=== PATIENT | male | born 1980 | race Caucasian/White ===

== ENCOUNTER 2017-03-15 19:31 | Inpatient (IN) | payer MEDICAID ==
[~2017-03-15] VITALS: Ht 190.5 cm; Wt 107.7 kg
[~2017-03-15 19:31] MED LIST: BENADRYL PO; FERROUS SULFATE PO; GEODON PO; HALO10TA15 PO; LEVE1000 PO; LORA2TAB2 PO; OLAN20TA2 PO; VIT C PO
[2017-03-15 20:04] VITALS: BP 104/64
[2017-03-15] MEDS ORDERED: OLAN10TA3 PO (20:19)
[2017-03-15] MEDS ORDERED: INFLUENZA VIRUS VACCINE QVS 2017-18 (3YR+)/PF 60 MCG/0.5 ML SYRINGE IM ONE (20:30)
[2017-03-15] MEDS ORDERED: PNEUMOCOCCAL VACCINE POLYVALENT 0.5 ML VIAL [PPSV23] IM ONE (20:30)
[2017-03-15 20:45] VITALS: BP 120/81
[2017-03-16] MEDS: HALOPERIDOL 5 MG TABLET PO PRN (02:53)
[2017-03-16] MEDS: LORazepam 2 MG TABLET PO PRN (02:53)
[2017-03-16] MEDS: ZOLPIDEM TARTRATE 10 MG TABLET PO PRN (02:53)
[2017-03-16] MEDS ORDERED: LORazepam 2 MG/ML VIAL IM ONE (03:15)
[2017-03-16] MEDS ORDERED: HALOPERIDOL LACTATE 5 MG/ML VIAL IM ONE (03:15)
[2017-03-16] MEDS ORDERED: DiphenhydrAMINE HCL 50 MG/ML VIAL IM ONE (03:15)
[2017-03-16 04:22] VITALS: BP 135/78
[2017-03-16] MEDS ORDERED: PETROLATUM,WHITE 71 GM JELLY TP PRN (08:00)
[2017-03-16] MEDS ORDERED: CloNIDine HCL 0.1 MG TABLET PO PRN (08:00)
[2017-03-16] MEDS ORDERED: BACITRACIN 28.4 GM OINTMENT TP PRN (08:00)
[2017-03-16] MEDS ORDERED: MAGNESIUM HYDROXIDE SUSPENSION 30 ML UDCUP PO PRN (08:00)
[2017-03-16] MEDS ORDERED: ALBUTEROL SULFATE HFA 90 MCG/PUFF 8 GM INHALER IH PRN (08:00)
[2017-03-16] MEDS ORDERED: ACETAMINOPHEN 325 MG TABLET PO PRN (08:00)
[2017-03-16] MEDS ORDERED: MAG HYDROX/AL HYDROX/SIMETH ES 30 ML SUSPENSION UDCUP PO PRN (08:00)
[2017-03-16] MEDS ORDERED: BENZOCAINE/MENTHOL LOZENGE MM PRN (08:00)
[2017-03-16] MEDS ORDERED: IBUPROFEN 600 MG TABLET PO PRN (08:00)
[2017-03-16] MEDS ORDERED: ONDANSETRON HCL 4 MG TABLET PO PRN (08:00)
[2017-03-16] MEDS ORDERED: LOPERAMIDE HCL 2 MG CAPSULE PO PRN (08:00)
[2017-03-16 08:42] VITALS: BP 123/71
[2017-03-16] MEDS: NICOTINE 21 MG/24 HOUR PATCH TD SCH (09:32)
[2017-03-16 16:14] VITALS: BP 129/75
[2017-03-16] MEDS: HALOPERIDOL 10 MG TABLET PO SCH (16:57)
[2017-03-16] MEDS: BENZTROPINE MESYLATE 2 MG TABLET PO SCH (16:57)
[2017-03-16] MEDS: OXcarbazepine 300 MG TABLET PO SCH (16:58)
[2017-03-17 05:54] VITALS: BP 124/77
[2017-03-17] MEDS: HALOPERIDOL 10 MG TABLET PO SCH ×2 (08:51→17:00)
[2017-03-17] MEDS: OXcarbazepine 300 MG TABLET PO SCH ×2 (08:51→17:00)
[2017-03-17] MEDS: NICOTINE 21 MG/24 HOUR PATCH TD SCH (08:51)
[2017-03-17] MEDS: BENZTROPINE MESYLATE 2 MG TABLET PO SCH ×2 (08:51→17:00)
[2017-03-17 08:52] VITALS: BP 109/80
[2017-03-17] MEDS: LORazepam 2 MG TABLET PO PRN (14:46)
[2017-03-17] MEDS: HALOPERIDOL 5 MG TABLET PO PRN (14:46)
[2017-03-17] MEDS ORDERED: LORazepam 2 MG/ML VIAL IM ONE (15:30)
[2017-03-17] MEDS ORDERED: DiphenhydrAMINE HCL 50 MG/ML VIAL IM ONE (15:30)
[2017-03-17] MEDS ORDERED: HALOPERIDOL LACTATE 5 MG/ML VIAL IM ONE (15:30)
[2017-03-17 16:10] VITALS: BP 128/81
[2017-03-17 16:30] VITALS: BP 119/83
[2017-03-17 18:00] VITALS: BP 119/83
[2017-03-17] MEDS: GuaiFENesin/D-METHORPHAN [SUGAR-FREE] 200-20MG/10 ML SYRUP UDCUP PO PRN (19:24)
[2017-03-17] MEDS: ZOLPIDEM TARTRATE 10 MG TABLET PO PRN (20:03)
[2017-03-18 05:30] VITALS: BP 122/81
[2017-03-18 08:08] VITALS: BP 136/70
[2017-03-18 08:19] LABS: BASOPHILS % (AUTO) 0.3 % (0.0-2.0); EOSINOPHILS % (AUTO) 3.2 % (1.0-6.0); HEMATOCRIT 42.6 % (41-53); HEMOGLOBIN 14.5 g/dL (13.5-17.5); LYMPHOCYTES # (AUTO) 1.1 K/uL (1.0-4.8); LYMPHOCYTES % (AUTO) 13.1 % (22.0-44.0); MEAN CORPUSCULAR HEMOGLOBIN 31.6 pg (26.0-34.0); MEAN CORPUSCULAR VOLUME 93 fL (80-100); MONOCYTES # (AUTO) 0.8 K/uL (0.1-1.0); MONOCYTES % (AUTO) 9.8 % (2.0-9.0); NEUTROPHILS % (AUTO) 73.6 % (40.0-70.0); PLATELET COUNT (AUTO) 162 K/uL (150-450); RED BLOOD CELL COUNT(AUTO) 4.59 MIL/uL (4.50-5.90); RED CELL DISTRIBUTION WIDTH 13.3 % (11.5-14.5)
[2017-03-18 09:03] LABS: HEMOGLOBIN A1C 5.5 % (4.5-6.2)
[2017-03-18 09:05] LABS: APPEARANCE,URINE CLEAR (CLEAR); BILIRUBIN,URINE NEGATIVE (NEGATIVE); GLUCOSE, URINE (UA) NEGATIVE (NEGATIVE); KETONES,URINE NEGATIVE (NEGATIVE); LEUKOCYTE ESTERASE ,URINE NEGATIVE (NEGATIVE); NITRATE,URINE NEGATIVE (NEGATIVE); OCCULT BLOOD,URINE NEGATIVE (NEGATIVE); PH,URINE 7.5 (5.0-8.0); PROTEIN,URINE NEGATIVE (NEGATIVE); UROBILINOGEN,URINE 0.2 mg/dL (<=1.0)
[2017-03-18] MEDS: HALOPERIDOL 10 MG TABLET PO SCH ×2 (09:05→16:15)
[2017-03-18] MEDS: BENZTROPINE MESYLATE 2 MG TABLET PO SCH ×2 (09:05→16:15)
[2017-03-18] MEDS: OXcarbazepine 300 MG TABLET PO SCH ×2 (09:05→16:15)
[2017-03-18] MEDS: NICOTINE 21 MG/24 HOUR PATCH TD SCH (09:06)
[2017-03-18 09:07] LABS: AMPHET/METH SCREEN,URINE NEGATIVE (NEGATIVE); BARBITURATE SCREEN, URINE NEGATIVE (NEGATIVE); BENZODIAZEPINES SCREEN,URINE NEGATIVE (NEGATIVE); CANNABINOID SCREEN,URINE NEGATIVE (NEGATIVE); COCAINE SCREEN,URINE NEGATIVE (NEGATIVE); METHADONE SCREEN, URINE NEGATIVE (NEGATIVE); OPIATE SCREEN,URINE NEGATIVE (NEGATIVE)
[2017-03-18 09:08] LABS: PHENCYCLIDINE SCREEN,URINE NEGATIVE (NEGATIVE)
[2017-03-18 09:32] LABS: ALANINE AMINOTRANSFERASE 77 U/L (12-78); ALBUMIN 3.9 g/dL (3.4-5.0); ALKALINE PHOSPHATASE 80 U/L (46-116); ANION GAP 7 mmol/L (8-16); ASPARTATE AMINOTRANSFERASE 107 U/L (15-37); BILIRUBIN,TOTAL 1.2 mg/dL (0.1-1.0); CARBON DIOXIDE 29 mmol/L (22-29); CHLORIDE 100 mmol/L (98-107); CHOL/HDL RATIO 2.2 (4.2-7.3); CHOLESTEROL 119 mg/dL (131-200); CREATININE 0.66 mg/dL (0.60-1.30); FREE T4 (FREE THYROXINE) 1.53 ng/dL (0.76-1.46); GLOMERULAR FILTR. RATE CALC > 60 mL/min (>60); GLUCOSE,RANDOM 82 mg/dL (70-110); HDL CHOLESTEROL 54 mg/dL (40-60); LDL CHOL (CALC.) 58 mg/dL (0-130); POTASSIUM 3.9 mmol/L (3.5-5.1); SODIUM SERUM 136 mmol/L (136-145); THYROID STIMULATING HORMONE 0.66 uIU/mL (0.36-3.74); TOTAL PROTEIN, SERUM 7.1 g/dL (6.4-8.2); TRIGLYCERIDES 36 mg/dL (15-150); UREA NITROGEN, BLOOD 4 mg/dL (7-18)
[2017-03-18 16:13] VITALS: BP 134/85
[2017-03-18] MEDS: LORazepam 2 MG TABLET PO PRN (16:40)
[2017-03-19 01:00] VITALS: BP 120/88
[2017-03-19] MEDS: GuaiFENesin/D-METHORPHAN [SUGAR-FREE] 200-20MG/10 ML SYRUP UDCUP PO PRN (01:45)
[2017-03-19] MEDS: ZOLPIDEM TARTRATE 10 MG TABLET PO PRN (01:45)
[2017-03-19] MEDS: LORazepam 2 MG TABLET PO PRN ×2 (05:23→19:53)
[2017-03-19] MEDS: HALOPERIDOL 5 MG TABLET PO PRN ×2 (05:23→19:53)
[2017-03-19] MEDS: HALOPERIDOL 10 MG TABLET PO SCH ×2 (08:22→16:21)
[2017-03-19] MEDS: BENZTROPINE MESYLATE 2 MG TABLET PO SCH ×2 (08:22→16:21)
[2017-03-19] MEDS: OXcarbazepine 300 MG TABLET PO SCH ×2 (08:22→16:21)
[2017-03-19 08:23] VITALS: BP 132/83
[2017-03-19] MEDS: NICOTINE 21 MG/24 HOUR PATCH TD SCH (08:23)
[2017-03-19 16:40] VITALS: BP 140/86
[2017-03-19] MEDS ORDERED: HALOPERIDOL LACTATE 5 MG/ML VIAL IM ONE (20:15)
[2017-03-19] MEDS ORDERED: DiphenhydrAMINE HCL 50 MG/ML VIAL IM ONE (20:15)
[2017-03-20 05:22] VITALS: BP 130/81
[2017-03-20] MEDS: NICOTINE 21 MG/24 HOUR PATCH TD SCH (08:06)
[2017-03-20] MEDS: OXcarbazepine 300 MG TABLET PO SCH ×2 (08:06→17:08)
[2017-03-20] MEDS: HALOPERIDOL 10 MG TABLET PO SCH ×2 (08:06→17:08)
[2017-03-20] MEDS: BENZTROPINE MESYLATE 2 MG TABLET PO SCH ×2 (08:06→17:08)
[2017-03-20 08:21] VITALS: BP 109/76
[2017-03-20] MEDS: LORazepam 2 MG TABLET PO PRN ×2 (09:42→16:18)
[2017-03-20 16:19] VITALS: BP 138/89
[2017-03-20] MEDS: ZOLPIDEM TARTRATE 10 MG TABLET PO PRN (20:34)
[2017-03-21 00:32] VITALS: BP 128/87
[2017-03-21] MEDS: LORazepam 2 MG TABLET PO PRN ×2 (00:36→12:56)
[2017-03-21 08:35] VITALS: BP 111/71
[2017-03-21] MEDS: HALOPERIDOL 10 MG TABLET PO SCH ×2 (08:39→16:34)
[2017-03-21] MEDS: NICOTINE 21 MG/24 HOUR PATCH TD SCH (08:39)
[2017-03-21] MEDS: BENZTROPINE MESYLATE 2 MG TABLET PO SCH ×2 (08:39→16:34)
[2017-03-21] MEDS: OXcarbazepine 300 MG TABLET PO SCH ×2 (08:39→16:34)
[2017-03-21 16:09] VITALS: BP 125/79
[2017-03-22 00:15] VITALS: BP 137/60
[2017-03-22] MEDS: HALOPERIDOL 5 MG TABLET PO PRN (00:32)
[2017-03-22] MEDS: ZOLPIDEM TARTRATE 10 MG TABLET PO PRN (00:32)
[2017-03-22 04:08] VITALS: BP 132/91
[2017-03-22] MEDS: LORazepam 2 MG TABLET PO PRN (04:12)
[2017-03-22 08:07] VITALS: BP 134/76
[2017-03-22] MEDS: HALOPERIDOL 10 MG TABLET PO SCH (09:10)
[2017-03-22] MEDS: OXcarbazepine 300 MG TABLET PO SCH (09:10)
[2017-03-22] MEDS: BENZTROPINE MESYLATE 2 MG TABLET PO SCH (09:10)
[2017-03-22] MEDS: NICOTINE 21 MG/24 HOUR PATCH TD SCH (09:10)
[2017-03-22] MEDS ORDERED: HALO10 PO (11:20)
[2017-03-22] MEDS ORDERED: OXCA300T PO (11:20)
[2017-03-22] MEDS ORDERED: BENZ2TAB10 PO (11:20)
== END 2017-03-22 14:40 | disposition home or self-care (01) | DRG 750 ==
LOC: B2S 20:04
PROVIDERS: ADMIT Psychiatry & Neurology Psychiatry; ATTEND Psychiatry & Neurology Psychiatry
DX: F25.0 Schizoaffective disorder, bipolar type (principal); F41.9 Anxiety disorder, unspecified; F17.200 Nicotine dependence, unspecified, uncomplicated; G47.00 Insomnia, unspecified; Z28.21 Immunization not carried out because of patient refusal
CPT/HCPCS: 80307; 83036; 84439; 84443; 87081; 90471; J1200; J1630; J2060; Q0162

== ENCOUNTER 2017-08-12 20:18 | Emergency (ER) | payer MEDICAID ==
[~2017-08-12] VITALS: Ht 185.4 cm; Wt 95.0 kg
[~2017-08-12 20:18] MED LIST changes: -BENADRYL PO; +BENZ2TAB10 PO; -FERROUS SULFATE PO; -GEODON PO; +HALO10 PO; -HALO10TA15 PO; -LEVE1000 PO; -LORA2TAB2 PO; -OLAN20TA2 PO; +OXCA300T PO; -VIT C PO
[2017-08-12] MEDS ORDERED: DIVA500T35 PO (20:48)
[2017-08-12] MEDS ORDERED: CHLO100T24 PO (20:48)
[2017-08-12] MEDS ORDERED: HALO10 PO (20:48)
[2017-08-12] MEDS ORDERED: TRIH5TAB2 PO (20:48)
[2017-08-12] MEDS ORDERED: SODIUM CHLORIDE 0.9% 1,000 ML IV ONE (23:00)
[2017-08-12 23:32] LABS: BASOPHILS % (AUTO) 0.4 % (0.0-2.0); EOSINOPHILS % (AUTO) 2.5 % (1.0-6.0); HEMATOCRIT 38.7 % (41-53); HEMOGLOBIN 13.5 g/dL (13.5-17.5); LYMPHOCYTES # (AUTO) 1.9 K/uL (1.0-4.8); LYMPHOCYTES % (AUTO) 20.6 % (22.0-44.0); MEAN CORPUSCULAR HEMOGLOBIN 30.5 pg (26.0-34.0); MEAN CORPUSCULAR VOLUME 87 fL (80-100); MONOCYTES # (AUTO) 0.8 K/uL (0.1-1.0); MONOCYTES % (AUTO) 8.7 % (2.0-9.0); NEUTROPHILS # (AUTO) 6.3 K/uL (1.8-7.7); NEUTROPHILS % (AUTO) 67.8 % (40.0-70.0); RED BLOOD CELL COUNT(AUTO) 4.44 MIL/uL (4.50-5.90); RED CELL DISTRIBUTION WIDTH 15.2 % (11.5-14.5)
[2017-08-12 23:42] LABS: ANION GAP 6 mmol/L (8-16); CALCIUM, TOTAL 8.6 mg/dL (8.8-10.5); CARBON DIOXIDE 29 mmol/L (22-29); CHLORIDE 94 mmol/L (98-107); CREATININE 0.65 mg/dL (0.60-1.30); GLOMERULAR FILTR. RATE CALC > 60 mL/min (>60); GLUCOSE,RANDOM 89 mg/dL (70-110); POTASSIUM 4.1 mmol/L (3.5-5.1); SODIUM SERUM 129 mmol/L (136-145); UREA NITROGEN, BLOOD 6 mg/dL (7-18)
[2017-08-12 23:46] LABS: PLATELET COUNT (AUTO) 153 K/uL (150-450); PLATELET MORPHOLOGY COMMENT GIANT PLTS PRESENT
[2017-08-12 23:47] LABS: VALPROIC ACID 97 mcg/mL (50-100)
[2017-08-13 00:09] VITALS: BP 115/73
== END 2017-08-13 00:43 | disposition home or self-care (01) ==
LOC: EMS 20:20
DX: R00.2 Palpitations (principal); F20.0 Paranoid schizophrenia; I10 Essential (primary) hypertension; Z88.0 Allergy status to penicillin; Z79.899 Other long term (current) drug therapy; F17.210 Nicotine dependence, cigarettes, uncomplicated
CPT/HCPCS: 36415; 80048; 80164; 84484; 85025; 93005; 96360; 99285; G0480; J7030

== ENCOUNTER 2017-08-15 19:31 | Emergency (ER) | payer MEDICAID ==
[~2017-08-15] VITALS: Ht 177.8 cm; Wt 81.8 kg
[~2017-08-15 19:31] MED LIST changes: -BENZ2TAB10 PO; +CHLO100T24 PO; +DIVA500T35 PO; -OXCA300T PO; +TRIH5TAB2 PO
[2017-08-15 21:06] LABS: BASOPHILS % (AUTO) 0.7 % (0.0-2.0); EOSINOPHILS % (AUTO) 2.2 % (1.0-6.0); HEMATOCRIT 41.2 % (41-53); HEMOGLOBIN 14.3 g/dL (13.5-17.5); LYMPHOCYTES # (AUTO) 1.8 K/uL (1.0-4.8); LYMPHOCYTES % (AUTO) 24.4 % (22.0-44.0); MEAN CORPUSCULAR HEMOGLOBIN 30.1 pg (26.0-34.0); MEAN CORPUSCULAR HGB CONC 34.7 G/dL (31.0-37.0); MEAN CORPUSCULAR VOLUME 87 fL (80-100); MONOCYTES # (AUTO) 0.7 K/uL (0.1-1.0); MONOCYTES % (AUTO) 9.3 % (2.0-9.0); NEUTROPHILS # (AUTO) 4.6 K/uL (1.8-7.7); NEUTROPHILS % (AUTO) 63.4 % (40.0-70.0); PLATELET COUNT (AUTO) 164 K/uL (150-450); RED BLOOD CELL COUNT(AUTO) 4.74 MIL/uL (4.50-5.90); RED CELL DISTRIBUTION WIDTH 15.4 % (11.5-14.5)
[2017-08-15 21:21] LABS: ANION GAP 4 mmol/L (8-16); CALCIUM, TOTAL 8.7 mg/dL (8.8-10.5); CARBON DIOXIDE 31 mmol/L (22-29); CHLORIDE 98 mmol/L (98-107); CREATININE 0.86 mg/dL (0.60-1.30); GLOMERULAR FILTR. RATE CALC > 60 mL/min (>60); GLUCOSE,RANDOM 98 mg/dL (70-110); SODIUM SERUM 133 mmol/L (136-145); UREA NITROGEN, BLOOD 6 mg/dL (7-18)
[2017-08-15 21:23] LABS: AMPHET/METH SCREEN,URINE NEGATIVE (NEGATIVE); BARBITURATE SCREEN, URINE NEGATIVE (NEGATIVE); BENZODIAZEPINES SCREEN,URINE NEGATIVE (NEGATIVE); CANNABINOID SCREEN,URINE NEGATIVE (NEGATIVE); COCAINE SCREEN,URINE NEGATIVE (NEGATIVE); METHADONE SCREEN, URINE NEGATIVE (NEGATIVE); OPIATE SCREEN,URINE NEGATIVE (NEGATIVE); PHENCYCLIDINE SCREEN,URINE NEGATIVE (NEGATIVE)
[2017-08-15 21:27] LABS: ALANINE AMINOTRANSFERASE 24 U/L (12-78); ALBUMIN 3.7 g/dL (3.4-5.0); ALKALINE PHOSPHATASE 98 U/L (46-116); ASPARTATE AMINOTRANSFERASE 17 U/L (15-37); BILIRUBIN,TOTAL 0.6 mg/dL (0.1-1.0); TOTAL PROTEIN, SERUM 7.5 g/dL (6.4-8.2)
[2017-08-16] MEDS ORDERED: OLANZapine 5 MG TABLET PO ONE (01:00)
[2017-08-16 02:31] VITALS: BP 123/96
== END 2017-08-16 02:42 | disposition home or self-care (01) ==
LOC: EMS 19:32
DX: F25.9 Schizoaffective disorder, unspecified (principal); I10 Essential (primary) hypertension; F17.210 Nicotine dependence, cigarettes, uncomplicated; Z88.1 Allergy status to other antibiotic agents; Z88.0 Allergy status to penicillin
CPT/HCPCS: 36415; 80053; 80307; 85025; 99284; G0480

== ENCOUNTER 2017-08-21 04:40 | Emergency (ER) | payer MEDICAID ==
[~2017-08-21] VITALS: Ht 182.9 cm; Wt 97.0 kg
[2017-08-21 05:46] LABS: BASOPHILS % (AUTO) 0.5 % (0.0-2.0); EOSINOPHILS % (AUTO) 2.1 % (1.0-6.0); HEMATOCRIT 46.8 % (41-53); HEMOGLOBIN 16.3 g/dL (13.5-17.5); LYMPHOCYTES # (AUTO) 1.5 K/uL (1.0-4.8); LYMPHOCYTES % (AUTO) 21.1 % (22.0-44.0); MEAN CORPUSCULAR HGB CONC 34.9 G/dL (31.0-37.0); MEAN CORPUSCULAR VOLUME 89 fL (80-100); MONOCYTES # (AUTO) 0.7 K/uL (0.1-1.0); MONOCYTES % (AUTO) 9.3 % (2.0-9.0); NEUTROPHILS # (AUTO) 4.9 K/uL (1.8-7.7); PLATELET COUNT (AUTO) 140 K/uL (150-450); RED BLOOD CELL COUNT(AUTO) 5.27 MIL/uL (4.50-5.90); RED CELL DISTRIBUTION WIDTH 15.7 % (11.5-14.5)
[2017-08-21 05:53] LABS: ANION GAP 3 mmol/L (8-16); CARBON DIOXIDE 33 mmol/L (22-29); CHLORIDE 100 mmol/L (98-107); CREATININE 0.83 mg/dL (0.60-1.30); GLOMERULAR FILTR. RATE CALC > 60 mL/min (>60); GLUCOSE,RANDOM 88 mg/dL (70-110); POTASSIUM 4.5 mmol/L (3.5-5.1); SODIUM SERUM 136 mmol/L (136-145); UREA NITROGEN, BLOOD 10 mg/dL (7-18)
[2017-08-21 05:58] LABS: ALANINE AMINOTRANSFERASE 23 U/L (12-78); ALKALINE PHOSPHATASE 100 U/L (46-116); ASPARTATE AMINOTRANSFERASE 16 U/L (15-37); BILIRUBIN,TOTAL 0.9 mg/dL (0.1-1.0); TOTAL PROTEIN, SERUM 8.1 g/dL (6.4-8.2)
[2017-08-21 06:23] LABS: VALPROIC ACID 90 mcg/mL (50-100)
[2017-08-21 06:41] LABS: AMPHET/METH SCREEN,URINE NEGATIVE (NEGATIVE); BARBITURATE SCREEN, URINE NEGATIVE (NEGATIVE); BENZODIAZEPINES SCREEN,URINE NEGATIVE (NEGATIVE); CANNABINOID SCREEN,URINE NEGATIVE (NEGATIVE); COCAINE SCREEN,URINE NEGATIVE (NEGATIVE); METHADONE SCREEN, URINE NEGATIVE (NEGATIVE); OPIATE SCREEN,URINE NEGATIVE (NEGATIVE)
[2017-08-21 06:42] LABS: PHENCYCLIDINE SCREEN,URINE NEGATIVE (NEGATIVE)
[2017-08-21 08:30] VITALS: BP 115/84
[2017-08-21] MEDS ORDERED: OLANZapine 5 MG TABLET PO ONE (09:30)
== END 2017-08-21 10:36 | disposition home or self-care (01) ==
LOC: EMS 04:42
DX: F20.9 Schizophrenia, unspecified (principal); R44.0 Auditory hallucinations; G47.00 Insomnia, unspecified; I10 Essential (primary) hypertension; F17.210 Nicotine dependence, cigarettes, uncomplicated; Z88.0 Allergy status to penicillin; Z88.1 Allergy status to other antibiotic agents
CPT/HCPCS: 36415; 80053; 80164; 80307; 85025; 99284; G0480

== ENCOUNTER 2023-07-24 17:45 | Emergency (ER) | payer MEDICAID ==
[~2023-07-24] VITALS: Ht 188 cm; Wt 133.6 kg
[~2023-07-24 17:45] MED LIST changes: -CHLO100T24 PO; +CHLO100T42 PO; +DIVA-112 PO; -DIVA500T35 PO; -HALO10 PO; +HALO10TA21 PO; -TRIH5TAB2 PO
[2023-07-24 17:54] VITALS: BP 134/94; PULSE 90; RESP 18; TEMP 97.7
[2023-07-24] MEDS: IBUPROFEN 600 MG TABLET PO ONE (19:33)
[2023-07-24] MEDS ORDERED: IBUP-1492 PO (19:42)
== END 2023-07-24 20:33 | disposition home or self-care (01) ==
LOC: EMS 17:45
DX: S62.302A Unspecified fracture of third metacarpal bone, right hand, initial encounter for closed fracture (principal); I10 Essential (primary) hypertension; F20.9 Schizophrenia, unspecified; F17.210 Nicotine dependence, cigarettes, uncomplicated; Z88.0 Allergy status to penicillin; W01.0XXA Fall on same level from slipping, tripping and stumbling without subsequent striking against object, initial encounter; Y93.89 Activity, other specified; Y92.89 Other specified places as the place of occurrence of the external cause; Y99.8 Other external cause status
CPT/HCPCS: 99283

== ENCOUNTER 2025-03-03 05:35 | Emergency (ER) | payer MEDICAID ==
[~2025-03-03] VITALS: Ht 185.4 cm; Wt 109.1 kg
[~2025-03-03 05:35] MED LIST changes: -CHLO100T42 PO; +CHLO100T47 PO; +IBUP-1492 PO
[2025-03-03 06:07] VITALS: BP 117/74; PULSE 96; RESP 20; TEMP 98.1; O2SAT 99
[2025-03-03 08:14] LABS: PLATELET COUNT (AUTO) 277 K/uL (150-450); RED BLOOD CELL COUNT(AUTO) 4.69 MIL/uL (4.50-5.90); RED CELL DISTRIBUTION WIDTH 15.7 % (11.5-14.5); WHITE BLOOD COUNT (AUTO) 7.7 K/uL (4.5-11.0)
[2025-03-03 08:23] LABS: CALCIUM, TOTAL 9.5 mg/dL (8.8-10.5); CREATININE 0.52 mg/dL (0.60-1.30); GLOMERULAR FILTR. RATE CALC > 60 mL/min (>60); GLUCOSE,RANDOM 87 mg/dL (70-110); SODIUM SERUM 135 mmol/L (136-145); UREA NITROGEN, BLOOD 12 mg/dL (7-18)
[2025-03-03] MEDS: SULFACETAMIDE SODIUM 10% 15 ML OPHTHALMIC SOLUTION OS ONE (08:49)
[2025-03-03] MEDS: PALIPERIDONE 1.5 MG ER TABLET PO ONE (08:55)
== END 2025-03-03 09:00 | disposition left against medical advice (07) ==
LOC: EMS 05:37
DX: F20.0 Paranoid schizophrenia (principal); I10 Essential (primary) hypertension; F17.210 Nicotine dependence, cigarettes, uncomplicated; Z88.1 Allergy status to other antibiotic agents; Z88.0 Allergy status to penicillin; Z79.899 Other long term (current) drug therapy; Z00.8 Encounter for other general examination
CPT/HCPCS: 99283; 80048; 80164; 85025; 36415; G0480